=== PATIENT | male | born 1955 | race Caucasian/White ===

== ENCOUNTER → 2024-04-30 | Outpatient (CLI) | payer MEDICARE | LOC: AMSURD 11:57 | DX: Z01.810 Encounter for preprocedural cardiovascular examination (principal) ==

== ENCOUNTER → 2024-05-05 | Day surgery (SDC) | payer MEDICARE ==
[~2024-05-05] MED LIST: Glycopyrrolate 0.2 MG/ML 1 ML VIAL ONE; Ketorolac 30 MG/ML VIAL ONE; Lidocaine PF 2% (20 MG/ML) 2 ML VIAL ONE; Ondansetron 4 MG/2 ML VIAL ONE; dexAMETHasone 4 MG/ML VIAL ONE; fentaNYL 100 MCG/2 ML VIAL ONE
== END ==
LOC: MSO 06:59
DX: D17.0 Benign lipomatous neoplasm of skin and subcutaneous tissue of head, face and neck (principal)
CPT/HCPCS: J1100; J1596; J1885; J2405; J2704; J2710; J3010; J7120